=== PATIENT | female | born 1935 | race Caucasian/White ===

== ENCOUNTER 2020-01-16 22:24 | Observation (INO) | payer MEDICARE, BC ==
--- NOTE | 2020-01-16 23:15 | ED ---
Chest Pain HPI - General Chief Complaint: Chest Pain Stated Complaint: Chest Pain Time Seen by Provider: 01/16/20 23:00 Source: RN/MD Mode of arrival: EMS Limitations: altered mental status - History of Present Illness Initial Comments: This patient is an 84-year-old woman transferred here from [facility] where she had gone tonight for possible chest pain. Patient has history of underlying dementia and it is difficult to obtain history of what occurred being to her going to [facility]. It sounds like at the living facility she had clutched her chest as if she may be having pain and therefore the transfer to the other facility was initiated. The patient is not able to give any history related to this event. The accompanying workup from the other facility reveals chemistries that are largely normal other than the glucose being 209 the BUN 34 with a creatinine of 1.2. The patient's CBC is unremarkable. The troponin is negative. MD Complaint: chest pain -: hour(s) Onset: during rest Pain Location: left chest Quality: other (Unable to characterize) Improves With: other (Unable to characterize) Worsens With: other (Unable to characterize) Treatments Prior to Arrival: aspirin, nitroglycerin, other (Rocephin) - Related Data Allergies Allergy/AdvReac Type Severity Reaction Status Date / Time No Known Allergies Allergy Verified 01/16/20 22:40 Review of Systems ROS Statement: Those systems with pertinent positive or pertinent negative responses have been documented in the HPI. ROS Other: All systems not noted in ROS Statement are negative. Limitations: ROS unobtainable due to patients medical condition (Underlying dementia) EKG Findings - EKG Results: EKG: interpreted by ERMD, sinus rhythm (With PVC), normal axis EKG shows: bradycardia (Rate 57 bpm) - Blocks, [place], Hypertrophy, ST Abn: AV and intraventricular conduction: right bundle branch block (fixed/intermittent, complete/incomplete) Past Medical History Past Medical History: Atrial Fibrillation, Diabetes Mellitus, Hypertension History of Any Multi-Drug Resistant Organisms: Unobtainable Past Psychological History: Unable to Obtain Smoking Status: Unknown if ever smoked Past Alcohol Use History: Unable to Obtain Past Drug Use History: Unable to Obtain General Exam General appearance: alert, in no apparent distress Head exam: Present: atraumatic, normocephalic Eye exam: Present: normal appearance Neck exam: Present: normal inspection Respiratory exam: Present: normal lung sounds bilaterally. Absent: respiratory distress, wheezes, rales, rhonchi, stridor Cardiovascular Exam: Present: regular rate, normal rhythm, normal heart sounds. Absent: systolic murmur, diastolic murmur, rubs, gallop GI/Abdominal exam: Present: soft. Absent: distended, tenderness, guarding Extremities exam: Present: normal inspection, normal capillary refill. Absent: pedal edema, calf tenderness Neurological exam: Present: alert Skin exam: Present: warm, dry, intact, normal color. Absent: rash Course Vital Signs 01/16/20 01/16/20 01/16/20 22:27 22:35 23:39 Temperature 98.1 F 97.9 F Pulse Rate 52 L 60 Pulse Rate [ 52 L Pulse Oximetery ] Respiratory 18 16 Rate Blood Pressure 128/109 114/83 O2 Sat by Pulse 97 97 Oximetry Disposition Clinical Impression: Chest pain Disposition: ADMITTED IP TO THIS HOSP Condition: Fair Is patient prescribed a controlled substance at d/c from ED?: No
[2020-01-17] MEDS ORDERED: NITROGLYCERIN SL TABS 0.4 MG TAB SUBLINGUAL PRN (00:27)
[2020-01-17] MEDS ORDERED: LORazepam 2 MG/ML INJ IV STA (00:36)
[2020-01-17 05:03] VITALS: RESP 16
[2020-01-17 08:17] LABS: Glucose,Whole Blood 49 mg/dL (75-99)
[2020-01-17 08:38] LABS: Glucose,Whole Blood 97 mg/dL (75-99)
[2020-01-17] MEDS ORDERED: QUEtiapine 25 MG TAB PO PRN (10:59)
[2020-01-17 11:49] LABS: Glucose,Whole Blood 122 mg/dL (75-99)
[2020-01-17] MEDS: SODIUM CHLORIDE 0.9% 1,000 ML IV SCH (12:00)
[2020-01-17] MEDS: carvediloL 3.125 MG TAB PO SCH (13:23)
[2020-01-17] MEDS: DONEPEZIL 5 MG TAB PO SCH (13:24)
[2020-01-17] MEDS: ATORVASTATIN 40 MG TAB PO SCH (13:24)
[2020-01-17 14:02] VITALS: BMI 18.3
--- NOTE | 2020-01-17 15:12 | P.HPIM ---
History of Present Illness 84-year-old female with history of dementia appears to have vascular dementia appears to be pretty advanced lives with her has been takes care of everything for her at home was brought in because it appear like patient was having chest pain is as patient was holding her chest. Patient had a troponin that was negative EKG showed incomplete right bundle branch block with mild bradycardia without any acute ST-T wave changes and PVCs. As of her advanced dementia, unable to obtain any history from the patient although patient is pleasant. Patient is mostly nonverbal. Patient is bit dehydrated on clinical exam as well as mildly elevated serum creatinine of 1.2 with her body mass her normal creatinine should be around 0.2. Patient doesn't appear to have any fever chills no other significant abnormality was appreciated. Review of Systems Unable to obtain due to her clinical condition Past Medical History Past Medical History: Atrial Fibrillation, Diabetes Mellitus, Hypertension History of Any Multi-Drug Resistant Organisms: Unobtainable Past Psychological History: Unable to Obtain Smoking Status: Unknown if ever smoked Past Alcohol Use History: Unable to Obtain Past Drug Use History: Unable to Obtain Medications and Allergies Home Medications Medication Instructions Recorded Confirmed Type Atorvastatin [Lipitor] 40 mg PO DAILY 01/17/20 01/17/20 History Carvedilol [Coreg] 3.125 mg PO DAILY 01/17/20 01/17/20 History Donepezil HCl [Aricept] 5 mg PO DAILY 01/17/20 01/17/20 History INSULIN ASPART (NovoLOG) [NovoLOG See Protocol SQ HS PRN 01/17/20 01/17/20 History (formulary)] Insulin Glargine,Hum.rec.anlog 35 units SQ DAILY 01/17/20 01/17/20 History [Toujeo Solostar] Levothyroxine Sodium [Synthroid] 75 mcg PO DAILY 01/17/20 01/17/20 History Lisinopril [Zestril] 5 mg PO DAILY 01/17/20 01/17/20 History Allergies Allergy/AdvReac Type Severity Reaction Status Date / Time No Known Allergies Allergy Verified 01/17/20 10:05 Physical Exam Vitals: Vital Signs Temp Pulse Pulse Resp BP BP Pulse Ox 01/17/20 11:58 58 L 16 144/70 98 01/17/20 11:55 58 L 16 01/17/20 08:30 97.4 F L 68 16 182/85 98 01/17/20 04:00 97.6 F 70 16 152/76 97 01/17/20 01:45 97.6 F 66 18 154/65 96 01/16/20 23:39 97.9 F 60 16 114/83 97 01/16/20 22:35 52 L 01/16/20 22:27 98.1 F 52 L 18 128/109 97 Intake and Output 01/17/20 01/17/20 01/17/20 06:59 14:59 22:59 Intake Total 600 Balance 600 Intake: Oral 600 Other: Voiding Method Diaper Diaper Incontinent # Voids 1 Weight 49.895 kg 49.895 kg PHYSICAL EXAMINATION: GENERAL: The patient is alert and oriented x0, not in any acute distress. Thin built HEENT: Pupils are round and equally reacting to light. EOMI. No scleral icterus. No conjunctival pallor. Normocephalic, atraumatic. No pharyngeal erythema. No thyromegaly. Dry mucous membranes CARDIOVASCULAR: S1 and S2 present. No murmurs, rubs, or gallops. PULMONARY: No wheezing was appreciated. ABDOMEN: Soft, nontender, nondistended, normoactive bowel sounds. No palpable organomegaly. MUSCULOSKELETAL: No joint swelling or deformity. EXTREMITIES: No cyanosis, clubbing, or pedal edema. NEUROLOGICAL: Limited unable to assess but does not appear to any focal deficits.. Patient does follow commands SKIN: No rashes. Results Labs: Abnormal Lab Results - Last 24 Hours (Table) 01/17/20 01/17/20 Range/Units 08:16 11:48 POC Glucose (mg/dL) 49 L 122 H (75-99) mg/dL Assessment and Plan Plan: -Possible chest pain: Rule out a concurrent syndromes, cardiology was consulted. -Mild acute renal failure prerenal azotemia from dehydration patient was started on IV fluids and recheck the basic volley profile tomorrow -Type 2 diabetes mellitus patient has low blood sugars will cut down a long- acting insulin from 33 units to 20 units in the and use sliding scale insulin -Hyperlipidemia -Hypertension hold off lisinopril because of acute renal failure. -Hypothyroidism -DVT prophylaxis with subcutaneous heparin
--- NOTE | 2020-01-17 15:37 | ECHOF ---
Referral Reason:chest pain MEASUREMENTS -------- HEIGHT: 165.1 cm WEIGHT: 49.9 kg BP: RVIDd: 1.8 cm (< 3.3) IVSd: 1.6 cm (0.6 - 1.1) LVIDd: 3.2 cm (3.9 - 5.3) LVPWd: 1.6 cm (0.6 - 1.1) IVSs: 1.9 cm LVIDs: 2.3 cm LVPWs: 2.2 cm LAESV Index (A-L): 42.26 ml/m Ao Diam: 3.0 cm (2.0 - 3.7) AV Cusp: 1.6 cm (1.5 - 2.6) LA Diam: 3.0 cm (2.7 - 3.8) MV EXCURSION: 6.594 mm (> 18.000) MV EF SLOPE: 29 mm/s (70 - 150) EPSS: 0.8 cm MV E Mitchell: 0.57 m/s MV DecT: 348 ms MV A Mitchell: 1.13 m/s MV E/A Ratio: 0.50 RAP: 5.00 mmHg RVSP: 18.87 mmHg FINDINGS -------- Sinus rhythm with extra systolic beats. This was a technically adequate study. There is moderate concentric left ventricular hypertrophy. Overall left ventricular systolic functi on is low-normal with, an EF between 50 - 55 %. Increased LAP Grade 2 Diastolic Dysfunction. The right ventricle is normal in size. LA is moderately dilated 34-39 ml/m2 The right atrial size is normal. Interatrial and interventricular septum intact. The aortic valve is trileaflet and appears structurally normal. The mitral valve leaflets are mildly thickened. There is trace mitral regurgitation. The tricuspid valve appears structurally normal. Trace tricuspid regurgitation present. Right otoniel tricular systolic pressure is normal at < 35 mmHg. There is no pulmonic regurgitation present. The aortic root size is normal. Normal inferior vena cava with normal inspiratory collapse consistent with estimated right atrial pre ssure of 5 mmHg. There is no pericardial effusion. CONCLUSIONS -------- 1. There is moderate concentric left ventricular hypertrophy. 2. Overall left ventricular systolic function is low-normal with, an EF between 50 - 55 %. 3. Increased LAP Grade 2 Diastolic Dysfunction. 4. LA is moderately dilated 34-39 ml/m2 5. The mitral valve leaflets are mildly thickened. 6. There is trace mitral regurgitation. 7. Trace tricuspid regurgitation present. JET HANDLER: Kiana Evans RDCS
[2020-01-17 16:55] LABS: Glucose,Whole Blood 68 mg/dL (75-99)
[2020-01-17 17:16] LABS: Glucose,Whole Blood 79 mg/dL (75-99)
[2020-01-17 20:46] LABS: Glucose,Whole Blood 272 mg/dL (75-99)
[2020-01-17] MEDS: FAMOTIDINE 20 MG TAB PO SCH (22:44)
[2020-01-17] MEDS: HEPARIN SODIUM,PORCINE 5,000 UNIT/ML 1 ML VIAL SQ SCH (22:44)
[2020-01-18 00:42] LABS: Glucose,Whole Blood 237 mg/dL (75-99)
[2020-01-18] MEDS: SODIUM CHLORIDE 0.9% 1,000 ML IV SCH (01:28)
[2020-01-18 05:49] LABS: Glucose,Whole Blood 111 mg/dL (75-99)
[2020-01-18 08:37] LABS: Glucose,Whole Blood 121 mg/dL (75-99)
[2020-01-18 08:47] LABS: HCT 43.8 % (34.0-46.0); HGB 13.7 gm/dL (11.4-16.0); MCH 29.7 pg (25.0-35.0); MCHC 31.2 g/dL (31.0-37.0); MCV 95.2 fL (80.0-100.0); Mean Platelet Volume 7.4; Platelet Count 245 k/uL (150-450); RDW 13.2 % (11.5-15.5); WBC 7.3 k/uL (3.8-10.6)
[2020-01-18 08:57] LABS: Calcium 8.7 mg/dL (8.4-10.2); Potassium 4.3 mmol/L (3.5-5.1)
[2020-01-18] MEDS ORDERED: ATORVASTATIN 40 MG TAB PO SCH (09:00)
[2020-01-18] MEDS ORDERED: LEVOTHYROXINE 75 MCG TAB PO SCH (09:00)
[2020-01-18] MEDS ORDERED: ASPIRIN 325 MG TAB PO SCH (09:00)
[2020-01-18] MEDS ORDERED: DONEPEZIL 5 MG TAB PO SCH (09:00)
[2020-01-18] MEDS ORDERED: lisinopriL 5 MG TAB PO SCH (09:00)
[2020-01-18] MEDS ORDERED: INSULIN DETEMIR (LEVEMIR) 100 UNIT/ML SYR SQ SCH (09:00)
[2020-01-18] MEDS ORDERED: carvediloL 3.125 MG TAB PO SCH (09:00)
[2020-01-18] MEDS: HEPARIN SODIUM,PORCINE 5,000 UNIT/ML 1 ML VIAL SQ SCH (09:19)
[2020-01-18] MEDS: ATORVASTATIN 40 MG TAB PO SCH (09:19)
[2020-01-18] MEDS: FAMOTIDINE 20 MG TAB PO SCH (09:19)
[2020-01-18] MEDS: carvediloL 3.125 MG TAB PO SCH (09:19)
[2020-01-18] MEDS: DONEPEZIL 5 MG TAB PO SCH (09:20)
[2020-01-18] MEDS ORDERED: lisinopriL 5 MG TAB PO STA (10:47)
[2020-01-18 11:25] LABS: Glucose,Whole Blood 238 mg/dL (75-99)
--- NOTE | 2020-01-18 11:59 | P.DS ---
Providers Date of admission: 01/17/20 00:27 Attending physician: Reyna Vega Consults: 01/17/20 11:14 Consult Physician Routine Consulting Provider: Arsh Choi Consult Reason/Comments: chest pain Do you want consulting provider notified?: Yes Primary care physician: Eliel Mar MD Hospital Course: 84-year-old female with history of dementia appears to have vascular dementia appears to be pretty advanced lives with her has been takes care of everything for her at home was brought in because it appear like patient was having chest pain is as patient was holding her chest. Patient had a troponin that was negative EKG showed incomplete right bundle branch block with mild bradycardia without any acute ST-T wave changes and PVCs. As of her advanced dementia, unable to obtain any history from the patient although patient is pleasant. Patient is mostly nonverbal. Patient is bit dehydrated on clinical exam as well as mildly elevated serum creatinine of 1.2 with her body mass her normal creatinine should be around 0.2. Patient doesn't appear to have any fever chills no other significant abnormality was appreciated. 01/18/2020 Patient had an episode of agitation but did not require any antipsychotic medications at the time. Patient is clinically doing well but the when asked the patient may have chest pain which is not clear because of which will obtain a d-dimer and also obtain a chest x-ray. Chest x-ray from the other facility read as right lower lobe infiltrate which appears to be atelectasis patient doesn't have any fever or leukocytosis. Patient had an echo cardiac exam showed normal ejection fraction but had some grade 2 diastolic dysfunction noted wall motion abnormalities. I cannot really say patient doesn't have any gases with reflux disease because of which I'll give her Pepcid empirically for 14 days. Although clinical suspicion for pneumonia is extremely low will repeat a chest x-ray here and also repeat a d-dimer if they're negative patient will be discharged patient blood pressure is elevated patient the is on lisinopril dose of which will be increased upon discharge patient is receiving IV fluids for acute renal failure from dehydration that may be contributing to her elevated blood pressures PHYSICAL EXAMINATION: GENERAL: The patient is alert and oriented x0, not in any acute distress. Thin built HEENT: Pupils are round and equally reacting to light. EOMI. No scleral icterus. No conjunctival pallor. Normocephalic, atraumatic. No pharyngeal erythema. No thyromegaly. Dry mucous membranes CARDIOVASCULAR: S1 and S2 present. No murmurs, rubs, or gallops. PULMONARY: No wheezing was appreciated. ABDOMEN: Soft, nontender, nondistended, normoactive bowel sounds. No palpable organomegaly. MUSCULOSKELETAL: No joint swelling or deformity. EXTREMITIES: No cyanosis, clubbing, or pedal edema. NEUROLOGICAL: Limited unable to assess but does not appear to any focal deficits.. Patient does follow commands SKIN: No rashes. -Chest pain ruled out acute coronary syndromes we will rule out PE suspicion for pneumonia is low probably either musculoskeletal or gases with reflux disease further management as described in the history above -Acute renal failure improved with IV fluids -type 2 diabetes mellitus and patient is becoming hypoglycemic at home will cut down the insulin from 35 units to 28 units since blood sugars went up with a 20 units -Hyperlipidemia -Hypertension -Hypothyroidism -Possible vascular dementia Patient Condition at Discharge: Fair Plan - Discharge Summary Discharge Rx Participant: No New Discharge Prescriptions: New Famotidine [Pepcid] 20 mg PO BID #30 tablet No Action Insulin Glargine,Hum.rec.anlog [Toujeo Solostar] 35 units SQ DAILY Donepezil HCl [Aricept] 5 mg PO DAILY Carvedilol [Coreg] 3.125 mg PO DAILY Atorvastatin [Lipitor] 40 mg PO DAILY Lisinopril [Zestril] 5 mg PO DAILY Levothyroxine Sodium [Synthroid] 75 mcg PO DAILY INSULIN ASPART (NovoLOG) [NovoLOG (formulary)] See Protocol SQ HS PRN PRN Reason: high blood sugar Discharge Medication List Atorvastatin [Lipitor] 40 mg PO DAILY 01/17/20 [History] Carvedilol [Coreg] 3.125 mg PO DAILY 01/17/20 [History] Donepezil HCl [Aricept] 5 mg PO DAILY 01/17/20 [History] INSULIN ASPART (NovoLOG) [NovoLOG (formulary)] See Protocol SQ HS PRN 01/17/20 [History] Insulin Glargine,Hum.rec.anlog [Toujeo Solostar] 35 units SQ DAILY 01/17/20 [History] Levothyroxine Sodium [Synthroid] 75 mcg PO DAILY 01/17/20 [History] Lisinopril [Zestril] 5 mg PO DAILY 01/17/20 [History] Famotidine [Pepcid] 20 mg PO BID #30 tablet 01/18/20 [Rx] Follow up Appointment(s)/Referral(s): Eliel Mar MD [Primary Care Provider] - [facility] [NON-STAFF] - Discharge Disposition: HOME SELF-CARE
--- NOTE | 2020-01-18 12:08 | P.CRDCN ---
History of Present Illness Consult date: 01/18/20 Reason for Consult (text): Chest pain Chief complaint: Chest pain History of present illness: HISTORY OF PRESENT ILLNESS AND PLAN: This is a 84-year-old female with history of advanced dementia, chronic atrial fibrillation, diabetes mellitus, hypertension and recent complaints of chest pain. Patient transferred from [facility] with complaints of chest pain. Patient has advanced dementia and is unable to answer any historical questions. No family currently at bedside. Pt has no current complaints of chest pain, chest pressure, shortness of breath or palpitations. Telemetry shows sinus bradycardia with PAC's. Heart rate 50s to 60. Troponin's negative 2. Blood pressure is elevated this a.m. and 169/85. D-Dimer elevated at 0.97. Pt is not anticoagulated for known AF. Takes Coreg 3.125 daily. Patient currently in no acute distress. Unknown smoking history. SIGNIFICANT PAST MEDICAL HISTORY: Advanced dementia, chronic atrial fibrillation, diabetes mellitus, hypertension and recent complaints of chest pain. PAST SURGICAL HISTORY: See list. EKG = SB with PAC's. HR 57 Troponins negative x 2 SIGNIFICANT LABORATORY VALUES: WNL. No magnesium level, will obtain. Most recent echo = EF 50-55%, grade 2 diastolic dysfunction. LA moderately dilated. Trace MR and trace TR. REVIEW OF SYSTEMS: CONSTITUTIONAL: Denies fever. Denies chills. EYES: Denies blurred vision. Denies blurred vision or vision changes. Denies eye pain. EARS, NOSE, MOUTH & THROAT: Denies headache. Denies sore throat. Denies ear pain Denies hemoptysis. CARDIOVASCULAR: Denies chest pain. Denies shortness of breath. Denies orthopnea. Denies PND. Denies palpitations. RESPIRATORY: Denies cough. Denies shortness of breath. GASTROINTESTINAL: Denies abdominal pain or distention. Denies diarrhea. Denies constipation. Denies nausea. Denies vomiting. MUSCULOSKELETAL: Denies myalgias. INTEGUMENTARY: Denies pruitis. Denies rash. ENDOCRINE: Denies fatigue. Denies weight change. Denies polydipsia. Denies polyurina Denies heat/cold intolerance. GENITOURINARY: Denies burning, hematuria or urgency with micturation. HEMATOLOGIC: Denies history of anemia. Denies bleeding. NEUROLOGIC: Denies numbness. Denies tingling. Denies weakness. PSYCHIATRIC: Denies anxiety. Denies depression. PHYSICAL EXAM: GENERAL: Well developed, in no acute distress. HEENT: Head is atraumatic, normocephalic. Pupils are equal, round. Extra ocular movements intact. Mucous membranes moist. Neck supple. No JVD. No carotid bruit. No thyromegaly. LUNGS: Clear to auscultation. No wheezes, rales or rhonchi. No chest wall tenderness on palpation or with deep breathing. HEART: Regular rate and rhythm, no rubs or gallops. S1 and S2 heard. No murmur. ABDOMEN: Abdominal exam, WNL. Bowel sounds x4 quads. Soft, non-tender, without masses, organomegaly, or abdominal aorta enlargement. EXTREMITIES/VASCULAR: Extremities have easily palpable radial, femoral, dorsalis pedis and posterior tibial pulses. No cyanosis, calf tenderness. No BLE edema. NEUROLOGIC: Patient is awake, alert and oriented x0. No focal neurologic abnormalities. FINAL IMPRESSION: 1. Atypical chest pain 2. Hypertension 3. PVC's/PAC's 4. Hyperlipidemia 5. Elevated D-Dimer, will obtain CT angiography to R/O PE PLAN: Will order CT angiography for elevated D-Dimer to rule out PE prior to DC. OK for D/C from a cardiology standpoint with negative CT scan for PE and blood pressure control. Continue same all other medication/medical regime. Nurse Practitioner note has been reviewed by the Physician. Signing provider agrees with the documented findings, assessment and plan of care. Past Medical History Past Medical History: Atrial Fibrillation, Diabetes Mellitus, Hypertension History of Any Multi-Drug Resistant Organisms: Unobtainable Past Psychological History: Unable to Obtain Smoking Status: Unknown if ever smoked Past Alcohol Use History: Unable to Obtain Past Drug Use History: Unable to Obtain Medications and Allergies Home Medications Medication Instructions Recorded Confirmed Type Atorvastatin [Lipitor] 40 mg PO DAILY 01/17/20 01/17/20 History Carvedilol [Coreg] 3.125 mg PO DAILY 01/17/20 01/17/20 History Donepezil HCl [Aricept] 5 mg PO DAILY 01/17/20 01/17/20 History INSULIN ASPART (NovoLOG) [NovoLOG See Protocol SQ HS PRN 01/17/20 01/17/20 History (formulary)] Levothyroxine Sodium [Synthroid] 75 mcg PO DAILY 01/17/20 01/17/20 History Lisinopril [Zestril] 5 mg PO DAILY 01/17/20 01/17/20 History Famotidine [Pepcid] 20 mg PO BID #30 tablet 01/18/20 Rx Insulin Glargine,Hum.rec.anlog 28 units SQ DAILY #0 01/18/20 01/17/20 Rx [Toyamile Da Silva] Allergies Allergy/AdvReac Type Severity Reaction Status Date / Time No Known Allergies Allergy Verified 01/17/20 10:05 Physical Exam Vitals: Vital Signs Temp Pulse Resp BP Pulse Ox 01/18/20 11:10 77 16 96 01/18/20 08:35 98.4 F 70 16 198/90 99 01/18/20 04:00 98.2 F 62 16 162/80 96 01/18/20 00:00 55 L 16 169/85 96 01/17/20 20:00 16 01/17/20 15:30 97.6 F 57 L 16 135/87 99 01/17/20 11:58 58 L 16 144/70 98 01/17/20 11:55 58 L 16 Intake and Output 01/17/20 01/18/20 01/18/20 22:59 06:59 14:59 Intake Total 720 600 740 Balance 720 600 740 Intake: Intake, IV Titration 600 Amount Sodium Chloride 0.9% 1, 600 000 ml @ 75 mls/hr IV . [id number] PENDING SALE TO [facility] Rx#:[id number] Oral 720 740 Other: Voiding Method Diaper Diaper Diaper Incontinent Incontinent Incontinent # Voids 1 1 1 Weight 48 kg Results 01/18/20 08:19 01/18/20 08:19 Lipids 01/18/20 Range/Units 08:19 Triglycerides 99 (<150) mg/dL Cholesterol 192 (<200) mg/dL HDL Cholesterol 67 H (40-60) mg/dL CBC 01/18/20 Range/Units 08:19 WBC 7.3 (3.8-10.6) k/uL RBC 4.60 (3.80-5.40) m/uL Hgb 13.7 (11.4-16.0) gm/dL Hct 43.8 (34.0-46.0) % Plt Count 245 (150-450) k/uL Comprehensive Metabolic Panel 01/18/20 Range/Units 08:19 Sodium 141 (137-145) mmol/L Potassium 4.3 (3.5-5.1) mmol/L Chloride 110 H (98-107) mmol/L Carbon Dioxide 27 (22-30) mmol/L BUN 21 H (7-17) mg/dL Creatinine 0.81 (0.52-1.04) mg/dL Glucose 97 (74-99) mg/dL Calcium 8.7 (8.4-10.2) mg/dL Current Medications Generic Name Dose Route Start Last Admin Trade Name Freq PRN Reason Stop Dose Admin Aspirin 325 mg 01/18/20 09:00 01/18/20 09:19 Aspirin PO 325 mg DAILY OSCAR Administration Atorvastatin Calcium 40 mg 01/17/20 12:15 01/18/20 09:19 Lipitor PO 40 mg DAILY OSCAR Administration Carvedilol 3.125 mg 01/17/20 12:01 01/18/20 09:19 Coreg PO 3.125 mg DAILY OSCAR Administration Donepezil HCl 5 mg 01/17/20 12:15 01/18/20 09:20 Aricept PO 5 mg DAILY OSCAR Administration Famotidine 20 mg 01/17/20 21:00 01/18/20 09:19 Pepcid PO 20 mg BID OSCAR Administration Heparin Sodium (Porcine) 5,000 unit 01/17/20 21:00 01/18/20 09:19 Heparin SQ 5,000 unit Q12HR OSCAR Administration Sodium Chloride 1,000 mls @ 75 mls/hr 01/17/20 11:00 01/18/20 01:28 Saline 0.9% IV 75 mls/hr .[id number] OSCAR Administration Insulin Detemir 20 unit 01/18/20 09:00 01/18/20 09:19 Levemir SQ 20 unit DAILY OSCAR Administration Levothyroxine Sodium 75 mcg 01/18/20 09:00 01/18/20 09:19 Synthroid PO 75 mcg DAILY OSCAR Administration Lisinopril 10 mg 01/19/20 09:00 Zestril PO DAILY OSCAR Nitroglycerin 0.4 mg 01/17/20 00:27 Nitrostat SUBLINGUAL Q5M PRN Chest Pain Quetiapine Fumarate 25 mg 01/17/20 10:59 Seroquel PO HS PRN Agitation Sodium Chloride 10 ml 01/17/20 09:00 01/18/20 10:03 Saline Flush IV Not Given BID OSCAR Intake and Output 01/17/20 01/18/20 01/18/20 22:59 06:59 14:59 Intake Total 720 600 740 Balance 720 600 740 Intake: Intake, IV Titration 600 Amount Sodium Chloride 0.9% 1, 600 000 ml @ 75 mls/hr IV . [id number] OSCAR Rx#:[id number] Oral 720 740 Other: Voiding Method Diaper Diaper Diaper Incontinent Incontinent Incontinent # Voids 1 1 1 Weight 48 kg 01/18/20 08:19 01/18/20 08:19 - EKG Interpretation EKG: sinus rhythm
--- NOTE | 2020-01-18 13:00 | XR ---
EXAMINATION TYPE: XR chest 1V portable DATE OF EXAM: 01/18/2020 HISTORY: chest pain. REFERENCE: NONE. FINDINGS: There are senescent changes within the lungs. Heart size upper limits of normal. There is s ome unfolding of the thoracic aorta. No pleural fluid is seen. There is severe rotator cuff disease i n both shoulders. IMPRESSION: NO ACUTE PNEUMONIA OR EDEMA.
--- NOTE | 2020-01-18 13:07 | CT ---
EXAMINATION TYPE: CT angio chest DATE OF EXAM: 01/18/2020 12:56 PM COMPARISON: None. HISTORY: elevated d dimer, rule out PE CT DLP: 212.6 mGycm Automated exposure control for dose reduction was used. CONTRAST: CTA scan of the thorax is performed with IV Contrast, patient injected with 100 mL of Isovue 370, pul monary embolism protocol. . FINDINGS: There is atelectatic changes in the dependent portions of the lungs. There is mild intersti tial lung disease. No definite parenchymal nodules are seen. There are tiny bilateral pleural effusions. There is no significant axillary, internal mammary, mediastinal or hilar adenopathy. There is no evidence of pulmonary embolus. The heart is mildly enlarged. There is no pericardial fluid. Visualized portions of the upper abdomen are unremarkable. There is hypertrophic spondylosis within the spine. IMPRESSION: 1. THIS EXAMINATION IS NEGATIVE FOR PULMONARY EMBOLUS. 2. TINY BILATERAL PLEURAL EFFUSIONS. 3. CARDIOMEGALY. 4. MILD INTERSTITIAL LUNG DISEASE.
[2020-01-18 15:08] VITALS: BP 168/69; PULSE 62; TEMP 98.4
[2020-01-19] MEDS ORDERED: FAMOTIDINE 20 MG TAB PO SCH (09:00)
[2020-01-19] MEDS ORDERED: lisinopriL 10 MG TAB PO SCH (09:00)
[2020-01-19 09:39] LABS: Hemoglobin A1C 8.4 % (4.0-6.0)
== END 2020-01-18 16:32 | disposition home or self-care (01) ==
LOC: EC 22:24 → 3SCARD 01-17 00:27
PROVIDERS: ADMIT Hospitalist; ATTEND Hospitalist
DX: R07.89 Other chest pain (principal); E03.9 Hypothyroidism, unspecified; E11.9 Type 2 diabetes mellitus without complications; E78.5 Hyperlipidemia, unspecified; E86.0 Dehydration; I10 Essential (primary) hypertension; I45.10 Unspecified right bundle-branch block; I48.20 Chronic atrial fibrillation, unspecified; N17.9 Acute kidney failure, unspecified; Z79.890 Hormone replacement therapy; Z79.899 Other long term (current) drug therapy; F03.90 Unspecified dementia, unspecified severity, without behavioral disturbance, psychotic disturbance, mood disturbance, and anxiety; R79.89 Other specified abnormal findings of blood chemistry; Z03.818 Encounter for observation for suspected exposure to other biological agents ruled out; R00.1 Bradycardia, unspecified
CPT/HCPCS: 96372; 96374; 99285; 36415; 93005; 93306; 85379; 80061; 80048; 83735; 84484 ×2; 85027; 83036; 71045; 71275; G0378 ×2; U0003; J2060; J1644; Q9967

== ENCOUNTER 2020-04-02 22:55 | Inpatient (IN) | payer MEDICARE, BC ==
--- NOTE | 2020-04-02 23:30 | XR ---
EXAMINATION TYPE: XR chest 1V portable DATE OF EXAM: 04/02/2020 COMPARISON: 01/18/2020 HISTORY: Chest pain TECHNIQUE: FINDINGS: There is no heart failure nor confluent pneumonic infiltrate. There is slight coarsening of interstitial markings. There are chest leads. Thoracic aorta is atheromatous. There is moderate arth ritic change in the shoulder joints. There is superior subluxation and partial dislocations of both s houlder joints. IMPRESSION: Pulmonary fibrotic changes. No heart failure. 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
--- NOTE | 2020-04-02 23:35 | ED ---
Chest Pain HPI - General Chief Complaint: Chest Pain Stated Complaint: cardiac transfer Time Seen by Provider: 04/02/20 22:58 Source: RN/MD, EMS Mode of arrival: EMS Limitations: altered mental status (Dementia), physical limitation - History of Present Illness Initial Comments: This patient is an 84 year old woman who had been transferred here from [facility] to have cardiology consultation. The patient's had phoned EMS earlier in the evening as the patient was less responsive than usual. She did not want to get off the couch. She did not want to have her dinner. While the patient was having an evaluation at the other hospital, she reportedly developed a run of ventricular tachycardia. The patient does appear to have moderately severe underlying dementia and is not able to recall the episode nor earlier in the night what led to the ambulance being called. The patient is able to answer some simple yes or no questions. She is denying chest pain. She denies pain anywhere else. She denies dyspnea. MD Complaint: other Treatments Prior to Arrival: other (Lidocaine) - Related Data Previous Rx's Medication Instructions Recorded Insulin Glargine,Hum.rec.anlog 28 units SQ DAILY #0 01/18/20 [Toujeo Solostar] Allergies Allergy/AdvReac Type Severity Reaction Status Date / Time No Known Allergies Allergy Verified 04/03/20 08:54 Review of Systems ROS Statement: Those systems with pertinent positive or pertinent negative responses have been documented in the HPI. ROS Other: All systems not noted in ROS Statement are negative. Limitations: ROS unobtainable due to patients medical condition (Dementia) Respiratory: Denies: cough, dyspnea Cardiovascular: Denies: chest pain Gastrointestinal: Denies: abdominal pain Musculoskeletal: Denies: back pain Neurological: Denies: headache EKG Findings - EKG Results: EKG: interpreted by ERMD, sinus rhythm (Rate 65 bpm), normal axis, normal ST/T - Blocks, Edelstein, Hypertrophy, ST Abn: AV and intraventricular conduction: right bundle branch block (fixed/intermittent, complete/incomplete) Past Medical History Past Medical History: Atrial Fibrillation, Dementia, Diabetes Mellitus, Hypertension History of Any Multi-Drug Resistant Organisms: Unobtainable Past Psychological History: Unable to Obtain Smoking Status: Unknown if ever smoked Past Alcohol Use History: Unable to Obtain Past Drug Use History: Unable to Obtain - Past Family History Mother Family Medical History: Unable to Obtain General Exam Limitations: altered mental status, physical limitation General appearance: alert, in no apparent distress, cachectic Head exam: Present: atraumatic, normocephalic Eye exam: Present: normal appearance. Absent: scleral icterus, conjunctival injection Neck exam: Present: normal inspection, full ROM Respiratory exam: Present: normal lung sounds bilaterally. Absent: respiratory distress, wheezes, rales, rhonchi, stridor Cardiovascular Exam: Present: regular rate, normal rhythm, normal heart sounds. Absent: systolic murmur, diastolic murmur, rubs, gallop GI/Abdominal exam: Present: soft. Absent: distended, tenderness, guarding, rebound Extremities exam: Present: normal inspection, normal capillary refill. Absent: pedal edema, calf tenderness Back exam: Present: normal inspection Neurological exam: Present: alert. Absent: oriented X3 (Patient is oriented to person only), motor sensory deficit Skin exam: Present: warm, dry, intact, normal color. Absent: rash Course Vital Signs 04/02/20 04/03/20 04/03/20 23:03 00:43 01:18 Temperature 98.0 F Pulse Rate 59 L 64 Respiratory 16 18 Rate Blood Pressure 175/99 131/71 O2 Sat by Pulse 98 96 95 Oximetry 04/03/20 01:47 Temperature 98.1 F Pulse Rate 68 Respiratory 18 Rate Blood Pressure 141/99 O2 Sat by Pulse 97 Oximetry Disposition Clinical Impression: Urinary tract infection, Ventricular tachycardia (paroxysmal) Disposition: ADMITTED IP TO THIS HOSP Condition: Poor
[2020-04-02 23:54] LABS: Basophils % (A) 0 %; Eosinophils # (A) 0.1 k/uL (0-0.7); Eosinophils % (A) 2 %; HCT 37.6 % (34.0-46.0); HGB 12.1 gm/dL (11.4-16.0); Lymphocytes % (A) 18 %; MCH 29.9 pg (25.0-35.0); MCHC 32.2 g/dL (31.0-37.0); Mean Platelet Volume 7.1; Monocytes # (A) 0.5 k/uL (0-1.0); Monocytes % (A) 8 %; Neutrophils # (A) 4.3 k/uL (1.3-7.7); Neutrophils % (A) 71 %; Platelet Count 226 k/uL (150-450); RBC 4.04 m/uL (3.80-5.40)
[2020-04-03 00:18] LABS: Albumin 3.4 g/dL (3.5-5.0); Calcium 8.5 mg/dL (8.4-10.2); Magnesium 1.9 mg/dL (1.6-2.3); Total Bilirubin 0.6 mg/dL (0.2-1.3); Total Protein 5.9 g/dL (6.3-8.2)
[2020-04-03 00:30] LABS: Partial Thromboplastin Time 20.2 sec (22.0-30.0)
[2020-04-03 00:56] LABS: Appearance,Urine Cloudy (Clear); Bacteria,Urine Many /hpf; Bilirubin,Urine Negative (Negative); Blood,Urine Moderate (Negative); Color,Urine Yellow; Glucose,Urine (UA) 1+ (Negative); Ketones,Urine Negative (Negative); Leukocyte Esterase,Urine Large (Negative); Mucus,Urine Rare /hpf; Nitrite,Urine Positive (Negative); PH, Urine 5.5 (5.0-8.0); Protein,Urine Trace (Negative); RBC,Urine 98 /hpf (0-5); Specific Gravity,Urine 1.017 (1.001-1.035); Squamous Epithelial Cell,Urine 2 /hpf (0-4); Urobilinogen,Urine <2.0 mg/dL (<2.0); WBC,Urine >182 /hpf (0-5)
[2020-04-03] MEDS ORDERED: LORazepam 2 MG/ML INJ IV STA (00:58)
[2020-04-03] MEDS ORDERED: NITROGLYCERIN SL TABS 0.4 MG TAB SUBLINGUAL PRN (01:18)
[2020-04-03] MEDS: LEVOTHYROXINE 75 MCG TAB PO SCH (06:27)
[2020-04-03] MEDS: INSULIN ASPART (NovoLOG) 100 UNIT/ML VIAL SQ SCH ×4 (06:27→21:13)
[2020-04-03] MEDS: carvediloL 3.125 MG TAB PO SCH (06:27)
[2020-04-03 06:28] LABS: Glucose,Whole Blood 153 mg/dL (75-99)
[2020-04-03] MEDS ORDERED: FAMOTIDINE 20 MG TAB PO SCH (09:00)
[2020-04-03] MEDS: lisinopriL 5 MG TAB PO SCH (10:53)
[2020-04-03] MEDS: INSULIN DETEMIR (LEVEMIR) 100 UNIT/ML SYR SQ SCH (10:53)
[2020-04-03] MEDS: ATORVASTATIN 40 MG TAB PO SCH (10:54)
[2020-04-03] MEDS: DONEPEZIL 5 MG TAB PO SCH (10:54)
[2020-04-03 12:26] LABS: Glucose,Whole Blood 171 mg/dL (75-99)
--- NOTE | 2020-04-03 12:56 | CONS ---
CONSULTATION Mrs. Hatch is an 84-year-old female who was transferred from [facility] for further cardiac evaluation. Patient has history of advanced dementia. Apparently was brought into the emergency room in [place] by her family because of change in mental status. In the emergency room, she had what appears to be an episode of arrhythmia with ventricular tachycardia and that is why she was transferred to [facility]. I am not able to obtain any history from the patient. She has advanced dementia. According to the nursing staff, since her transfer, she has not had any issues at all. On the monitor, she has been in sinus mechanism. She was in the hospital in December for questionable chest discomfort and at that time underwent an echocardiogram that revealed no evidence of segmental wall motion abnormalities. MEDICATION: At home included aspirin, Lipitor 40 mg daily, Coreg 3.125 mg and daily, donepezil, insulin, and lisinopril 5 mg daily. REVIEW OF SYSTEMS: Could not be obtained. PHYSICAL EXAMINATION: She is an 84-year-old female, alert, confused, in no apparent distress. Blood pressure 140/60 with a heart rate in 60s. HEAD: Normocephalic. EYES: Sclerae anicteric. NECK good upstroke. No jugular venous distention. LUNGS: Clear to auscultation. HEART: Regular rate and rhythm S1, S2. No S3. No S4. No murmur or rub with a systolic murmur. ABDOMEN: Soft, nontender. Positive bowel sounds. No organomegaly. EXTREMITIES: No edema noted. Reviewing the rhythm strips that were sent with the patient: What was thought to be ventricular tachycardia was artifact and there was no evidence of ventricular tachycardia. Her EKG showed a sinus mechanism with a right bundle branch block. Reviewing her EKG from her prior admission there were no changes. There was a question of atrial fibrillation, although I do not see any documentation at this time. Her chest x-ray performed yesterday in the emergency room revealed no heart failure. Her BUN and creatinine 32 and 0.78. Troponin less than 0.012. Hemoglobin of 12.1. IMPRESSION: 1. Change in mental status of unclear etiology in a patient with severe dementia. 2. Artifact with no evidence of ventricular tachycardia. 3. History of hypertension. 4. History of hyperlipidemia. 5. Diabetes mellitus. RECOMMENDATIONS: From the cardiac standpoint, I see no evidence of active cardiac issues. I would not recommend any cardiac workup. We will see her on an as-needed basis. Please feel free to call us for any questions. Thank you for this consult. MIKE / SHREYAN: [phone] /
[2020-04-03 16:56] LABS: Glucose,Whole Blood 72 mg/dL (75-99)
[2020-04-03 19:01] LABS: Glucose,Whole Blood 200 mg/dL (75-99)
[2020-04-03 20:52] LABS: Glucose,Whole Blood 230 mg/dL (75-99)
[2020-04-03] MEDS: QUEtiapine 25 MG TAB PO PRN (23:04)
[2020-04-04 02:56] LABS: Cholesterol 182 mg/dL (<200); HDL Cholesterol 55 mg/dL (40-60); LDL Cholesterol,Calculated 111 mg/dL (0-99); Triglycerides 81 mg/dL (<150)
[2020-04-04 06:06] LABS: Glucose,Whole Blood 64 mg/dL (75-99)
[2020-04-04] MEDS ORDERED: DEXTROSE 50% SYRINGE 50 ML IVP STA (06:12)
[2020-04-04] MEDS ORDERED: DEXTROSE 50% SYRINGE 50 ML IVP ONE (06:14)
[2020-04-04] MEDS: INSULIN ASPART (NovoLOG) 100 UNIT/ML VIAL SQ SCH ×2 (06:15→12:50)
[2020-04-04 06:27] LABS: Glucose,Whole Blood 212 mg/dL (75-99)
[2020-04-04] MEDS: LEVOTHYROXINE 75 MCG TAB PO SCH (07:48)
[2020-04-04] MEDS: carvediloL 3.125 MG TAB PO SCH (07:48)
[2020-04-04] MEDS: ASPIRIN 81 MG PO SCH (07:48)
[2020-04-04] MEDS: ATORVASTATIN 40 MG TAB PO SCH (07:48)
[2020-04-04] MEDS: lisinopriL 5 MG TAB PO SCH (07:48)
[2020-04-04] MEDS: FAMOTIDINE 20 MG TAB PO SCH (07:48)
[2020-04-04] MEDS: DONEPEZIL 5 MG TAB PO SCH (07:49)
[2020-04-04] MEDS ORDERED: ASPIRIN 325 MG TAB PO SCH (09:00)
--- NOTE | 2020-04-04 11:15 | P.HPIM ---
History of Present Illness H&P Date: 04/03/20 Chief Complaint: Chest pain 84 year old woman who had been transferred here from [facility] to have cardiology consultation. The patient's had phoned EMS earlier in the evening as the patient was less responsive than usual. She did not want to get off the couch. She did not want to have her dinner. While the patient was having an evaluation at the other hospital, she reportedly developed a run of ventricular tachycardia. The patient does appear to have moderately severe underlying dementia and is not able to recall the episode nor earlier in the night what led to the ambulance being called. The patient is able to answer some simple yes or no questions. She is denying chest pain. She denies pain anywhere else. She denies dyspnea. Review of Systems REVIEW OF SYSTEMS: CONSTITUTIONAL: No fever, no malaise, no fatigue. HEENT: No recent visual problems or hearing problems. Denied any sore throat. CARDIOVASCULAR: No chest pain, orthopnea, PND, no palpitations, no syncope. PULMONARY: No shortness of breath, no cough, no hemoptysis. GASTROINTESTINAL: No diarrhea, no nausea, no vomiting, no abdominal pain. NEUROLOGICAL: No headaches, no weakness, no numbness. HEMATOLOGICAL: Denies any bleeding or petechiae. GENITOURINARY: Denies any burning micturition, frequency, or urgency. MUSCULOSKELETAL/RHEUMATOLOGICAL: Denies any joint pain, swelling, or any muscle pain. ENDOCRINE: Denies any polyuria or polydipsia. The rest of the 14-point review of systems is negative. Past Medical History Past Medical History: Atrial Fibrillation, Dementia, Diabetes Mellitus, Hypertension, Thyroid Disorder History of Any Multi-Drug Resistant Organisms: Unobtainable Past Anesthesia/Blood Transfusion Reactions: Unable to Obtain Past Psychological History: Unable to Obtain Smoking Status: Unknown if ever smoked Past Alcohol Use History: Unable to Obtain Past Drug Use History: Unable to Obtain - Past Family History Mother Family Medical History: Unable to Obtain Medications and Allergies Home Medications Medication Instructions Recorded Confirmed Type Insulin Glargine,Hum.rec.anlog 28 units SQ DAILY #0 01/18/20 04/03/20 Rx [Toukeshia Soltreear] Allergies Allergy/AdvReac Type Severity Reaction Status Date / Time No Known Allergies Allergy Verified 04/03/20 08:54 Physical Exam Vitals: Vital Signs Temp Pulse Pulse Resp BP BP Pulse Ox 04/03/20 12:00 70 18 141/67 98 04/03/20 08:45 97.7 F 64 17 140/65 97 04/03/20 04:00 98.9 F 73 18 139/95 97 04/03/20 01:47 98.1 F 68 18 141/99 97 04/03/20 01:18 95 04/03/20 00:43 64 18 131/71 96 04/02/20 23:03 98.0 F 59 L 16 175/99 98 Intake and Output 04/03/20 04/03/20 04/03/20 06:59 14:59 22:59 Intake Total 50 Output Total 800 Balance -750 Intake: Oral 50 Output: Urine 800 Other: Voiding Method Incontinent # Voids 1 Weight 55.3 kg Limitations: altered mental status, physical limitation General appearance: alert, in no apparent distress, cachectic Head exam: Present: atraumatic, normocephalic Eye exam: Present: normal appearance. Absent: scleral icterus, conjunctival injection Neck exam: Present: normal inspection, full ROM Respiratory exam: Present: normal lung sounds bilaterally. Absent: respiratory distress, wheezes, rales, rhonchi, stridor Cardiovascular Exam: Present: regular rate, normal rhythm, normal heart sounds. Absent: systolic murmur, diastolic murmur, rubs, gallop GI/Abdominal exam: Present: soft. Absent: distended, tenderness, guarding, rebound Extremities exam: Present: normal inspection, normal capillary refill. Absent: pedal edema, calf tenderness Back exam: Present: normal inspection Neurological exam: Present: alert. Absent: oriented X3 (Patient is oriented to person only), motor sensory deficit Skin exam: Present: warm, dry, intact, normal color. Absent: rash Results CBC & Chem 7: 04/02/20 23:37 04/02/20 23:37 Labs: Abnormal Lab Results - Last 24 Hours (Table) 04/02/20 04/02/20 04/03/20 Range/Units 23:37 23:37 00:42 APTT 20.2 L (22.0-30.0) sec Sodium 135 L (137-145) mmol/L Chloride 108 H (98-107) mmol/L BUN 32 H (7-17) mg/dL Glucose 208 H (74-99) mg/dL POC Glucose (mg/dL) (75-99) mg/dL Total Protein 5.9 L (6.3-8.2) g/dL Albumin 3.4 L (3.5-5.0) g/dL Urine Appearance Cloudy H (Clear) Urine Protein Trace H (Negative) Urine Glucose (UA) 1+ H (Negative) Urine Blood Moderate H (Negative) Urine Nitrite Positive H (Negative) Ur Leukocyte Esterase Large H (Negative) Urine RBC 98 H (0-5) /hpf Urine WBC >182 H (0-5) /hpf Urine WBC Clumps Few H (None) /hpf Urine Bacteria Many H (None) /hpf Urine Mucus Rare H (None) /hpf 04/03/20 04/03/20 Range/Units 06:26 12:07 APTT (22.0-30.0) sec Sodium (137-145) mmol/L Chloride (98-107) mmol/L BUN (7-17) mg/dL Glucose (74-99) mg/dL POC Glucose (mg/dL) 153 H 171 H (75-99) mg/dL Total Protein (6.3-8.2) g/dL Albumin (3.5-5.0) g/dL Urine Appearance (Clear) Urine Protein (Negative) Urine Glucose (UA) (Negative) Urine Blood (Negative) Urine Nitrite (Negative) Ur Leukocyte Esterase (Negative) Urine RBC (0-5) /hpf Urine WBC (0-5) /hpf Urine WBC Clumps (None) /hpf Urine Bacteria (None) /hpf Urine Mucus (None) /hpf Thrombosis Risk Factor Assmnt - Choose All That Apply Any of the Below Risk Factors Present?: Yes Each Risk Factor Represents 3 Points: Age 75 years or older Thrombosis Risk Factor Assessment Total Risk Factor Score: 3 Thrombosis Risk Factor Assessment Level: Moderate Risk Assessment and Plan Assessment: 1. Ventricular arrhythmia - Cardiac telemetry; consult cardiology - Patient has been evaluated by cardiology and patient's rhythm strips from outside facility are reviewed and report was read as ventricular tachycardia seems to be an artifact; EKG shows normal sinus rhythm with right bundle branch block with question of atrial fibrillation - Patient had an echocardiogram done and recently which did not reveal any evidence of segmental wall motion abnormality - No further cardiac workup was recommended 2. UTI; patient is started on IV Rocephin; urine cultures are done and pending; we will plan to tailor antibiotic therapy once culture results are available 3. Altered mental status; metabolic encephalopathy possibly secondary to UTI 4. Hypertension; stable on home dose of lisinopril 5 mg daily along with Coreg 3.125 mg daily 5. Hyperlipidemia; continue with Lipitor 40 mg by mouth daily at bedtime 6. Advanced dementia; Aricept 5 mg by mouth daily at bedtime 7. Hypothyroidism; levothyroxine 75 MCG daily 8. Insulin-dependent diabetes; we will continue with Levemir 28 units subcu daily; monitor Accu-Cheks every before meals and at bedtime with insulin sliding scale DVT prophylaxis; SCDs CODE STATUS; full code
[2020-04-04] MEDS: INSULIN DETEMIR (LEVEMIR) 100 UNIT/ML SYR SQ SCH (11:22)
[2020-04-04 12:11] LABS: Glucose,Whole Blood 262 mg/dL (75-99)
--- NOTE | 2020-04-04 12:17 | US ---
EXAMINATION TYPE: US venous doppler duplex UE RT DATE OF EXAM: 04/04/2020 COMPARISON: NONE CLINICAL HISTORY: Swelling right arm. Poor historian. No redness. No swelling SIDE PERFORMED: Right limited visualization due to patient small body habitus Right Arm: Negative for DVT IMPRESSION: 1. Right upper extremity ultrasound negative for deep venous thrombosis. There is some limitation on this due to body habitus.
--- NOTE | 2020-04-04 16:26 | P.PN ---
Subjective Progress Note Date: 04/04/20 Principal diagnosis: Ventricular arrhythmia Altered mental status UTI 78-year-old female patient with history of recurrent's dementia, transferred to our facility for cardiac evaluation for possible ventricular tachycardia at the outside facility 04/04/2020 Patient is seen and evaluated resting comfortably in bed; patient discussed in detail with nursing staff; did have episodes of marked fluctuations in blood sugar Vital signs remained stable with a temperature of 98, pulse 73, respiration 18 and blood pressure 118/60 We will continue with long-acting insulin in form of Lantus and discontinue sliding scale coverage; monitor blood sugars closely and make further adjustments as needed Right upper extremity exhibits some swelling close to forearm and wrist area; we will order ultrasound Doppler of right upper extremity to rule out DVT Patient has been cleared by cardiology and no further testing is recommended; remains on IV Rocephin for UTI to final culture results are available to tailor antibiotic therapy; we will consult PT/OT for discharge planning Objective - Vital Signs Vital signs: Vital Signs Temp 98 F 04/04/20 08:00 Pulse 73 04/04/20 08:00 Resp 18 04/04/20 08:00 BP 180/81 04/04/20 08:00 Pulse Ox 97 04/04/20 08:00 Intake & Output 04/03/20 04/04/20 04/04/20 18:59 06:59 18:59 Intake Total 1800 840 300 Output Total 800 Balance 1000 840 300 Intake: Intake, IV Titration 100 Amount cefTRIAXone 1 gm In 100 Sodium Chloride 0.9% 50 ml @ 100 mls/hr IVPB DAILY [facility] Rx#:[id number] Oral 1700 840 300 Output: Urine 800 Other: Voiding Method Diaper Diaper # Voids 1 1 1 - Exam - Constitutional General appearance: Present: average body habitus, cooperative, no acute distressl Neck: Present: normal ROM. Absent: lymphadenopathy, rigidity, thyromegaly Carotids: negative: bruit present Thyroid: bilateral: normal size, negative: enlarged, nodule Respiratory: bilateral: CTA, negative: rales, rhonchi, wheezing Cardiovascular; regular; normal: S1, S2 Abnormal Heart Sounds: Absent: systolic murmur, diastolic murmur General gastrointestinal: Present: normal bowel sounds, soft. Absent: distended, organomegaly, tenderness Integumentary: Present: normal turgor. Absent: jaundiced, rash, ulcer Neurologic: Present: CNII-XII intact. - Labs CBC & Chem 7: 04/02/20 23:37 04/02/20 23:37 Labs: Abnormal Lab Results - Last 24 Hours (Table) 04/03/20 04/03/20 04/03/20 Range/Units 05:50 12:07 16:55 POC Glucose (mg/dL) 171 H 72 L (75-99) mg/dL LDL Cholesterol, Calc 111 H (0-99) mg/dL 04/03/20 04/03/20 04/04/20 Range/Units 18:59 20:51 06:05 POC Glucose (mg/dL) 200 H 230 H 64 L (75-99) mg/dL LDL Cholesterol, Calc (0-99) mg/dL 04/04/20 Range/Units 06:25 POC Glucose (mg/dL) 212 H (75-99) mg/dL LDL Cholesterol, Calc (0-99) mg/dL Assessment and Plan Assessment: 1. Ventricular arrhythmia - Cardiac telemetry; consult cardiology - Patient has been evaluated by cardiology and patient's rhythm strips from outside facility are reviewed and report was read as ventricular tachycardia seems to be an artifact; EKG shows normal sinus rhythm with right bundle branch block with question of atrial fibrillation - Patient had an echocardiogram done and recently which did not reveal any evidence of segmental wall motion abnormality - No further cardiac workup was recommended 2. UTI; patient is started on IV Rocephin; urine cultures are done and pending; we will plan to tailor antibiotic therapy once culture results are available 3. Altered mental status; metabolic encephalopathy possibly secondary to UTI 4. Hypertension; stable on home dose of lisinopril 5 mg daily along with Coreg 3.125 mg daily 5. Hyperlipidemia; continue with Lipitor 40 mg by mouth daily at bedtime 6. Advanced dementia; Aricept 5 mg by mouth daily at bedtime 7. Hypothyroidism; levothyroxine 75 MCG daily 8. Insulin-dependent diabetes; we will continue with Levemir 28 units subcu da francis; monitor Accu-Cheks every before meals and at bedtime with insulin sliding scale DVT prophylaxis; SCDs CODE STATUS; full code
[2020-04-04 17:24] LABS: Glucose,Whole Blood 252 mg/dL (75-99)
[2020-04-04 21:08] LABS: Glucose,Whole Blood 204 mg/dL (75-99)
[2020-04-04] MEDS: QUEtiapine 25 MG TAB PO PRN (21:59)
[2020-04-05 00:36] LABS: Glucose,Whole Blood 36 mg/dL (75-99)
[2020-04-05 00:37] LABS: Glucose,Whole Blood 33 mg/dL (75-99)
[2020-04-05] MEDS ORDERED: DEXTROSE 50% SYRINGE 50 ML IVP STA (00:42)
[2020-04-05 00:50] LABS: Glucose,Whole Blood 217 mg/dL (75-99)
[2020-04-05 01:36] LABS: Glucose,Whole Blood 128 mg/dL (75-99)
[2020-04-05 06:04] LABS: Glucose,Whole Blood 53 mg/dL (75-99)
[2020-04-05 06:17] LABS: Glucose,Whole Blood 44 mg/dL (75-99)
[2020-04-05 06:35] LABS: Glucose,Whole Blood 85 mg/dL (75-99)
[2020-04-05] MEDS ORDERED: DEXTROSE 5%-0.9% NACL 1,000 ML IV SCH (07:00)
[2020-04-05] MEDS: LEVOTHYROXINE 75 MCG TAB PO SCH (07:05)
[2020-04-05 07:22] LABS: Basophils % (A) 0 %; Eosinophils # (A) 0.1 k/uL (0-0.7); Eosinophils % (A) 2 %; HCT 41.8 % (34.0-46.0); HGB 13.1 gm/dL (11.4-16.0); Lymphocytes # (A) 0.9 k/uL (1.0-4.8); Lymphocytes % (A) 16 %; MCH 29.9 pg (25.0-35.0); MCHC 31.4 g/dL (31.0-37.0); MCV 95.1 fL (80.0-100.0); Mean Platelet Volume 7.5; Monocytes # (A) 0.4 k/uL (0-1.0); Monocytes % (A) 7 %; Neutrophils # (A) 4.3 k/uL (1.3-7.7); Neutrophils % (A) 73 %; Platelet Count 213 k/uL (150-450); RBC 4.39 m/uL (3.80-5.40); RDW 13.2 % (11.5-15.5); WBC 5.9 k/uL (3.8-10.6)
[2020-04-05 07:33] LABS: Calcium 8.8 mg/dL (8.4-10.2); Potassium 4.7 mmol/L (3.5-5.1)
[2020-04-05] MEDS: lisinopriL 5 MG TAB PO SCH (09:29)
[2020-04-05] MEDS: FAMOTIDINE 20 MG TAB PO SCH (09:29)
[2020-04-05] MEDS: ATORVASTATIN 40 MG TAB PO SCH (09:29)
[2020-04-05] MEDS: ASPIRIN 81 MG PO SCH (09:29)
[2020-04-05] MEDS: DONEPEZIL 5 MG TAB PO SCH (09:29)
[2020-04-05] MEDS: carvediloL 3.125 MG TAB PO SCH (09:29)
[2020-04-05] MEDS ORDERED: QUEtiapine 25 MG TAB PO PRN (11:01)
[2020-04-05] MEDS: HALOPERIDOL LACTATE 5 MG/ML 1 ML VIAL IVP PRN ×2 (11:13→18:49)
[2020-04-05 11:15] LABS: Glucose,Whole Blood 242 mg/dL (75-99)
--- NOTE | 2020-04-05 12:13 | P.PN ---
Subjective 78-year-old female patient with history of recurrent's dementia, transferred to our facility for cardiac evaluation for possible ventricular tachycardia at the outside facility 04/04/2020 Patient is seen and evaluated resting comfortably in bed; patient discussed in detail with nursing staff; did have episodes of marked fluctuations in blood sugar Vital signs remained stable with a temperature of 98, pulse 73, respiration 18 and blood pressure 118/60 We will continue with long-acting insulin in form of Lantus and discontinue sliding scale coverage; monitor blood sugars closely and make further adjustments as needed Right upper extremity exhibits some swelling close to forearm and wrist area; we will order ultrasound Doppler of right upper extremity to rule out DVT Patient has been cleared by cardiology and no further testing is recommended; remains on IV Rocephin for UTI to final culture results are available to tailor antibiotic therapy; we will consult PT/OT for discharge planning. 04/05/2020 Patient has advancing dementia. Unable to get much of the history from the patient. I do not have any urine cultures available at this time patient is being treated for UTI. Patient blood sugars are extremely low and discontinue her insulin patient will be continue on sliding scale insulin will be transferr ed out of for cardiac care unit. Patient most probably will need subacute intimidation placement. Patient is definitely confused. Patient will be started on Seroquel, Haldo As needed for agitation patient had occasional agitation episodes. Patient is on D5 which will be discontinued. Review of systems: Unable to obtain due to her clinical condition All inpatient medications were reviewed and appropriate changes in these medications as dictated in the interval history and assessment and plan. Objective - Vital Signs Vital signs: Vital Signs Temp 98.1 F 04/05/20 09:20 Pulse 62 04/05/20 09:20 Resp 16 04/05/20 09:20 BP 180/73 04/05/20 09:20 Pulse Ox 98 04/05/20 09:20 Intake & Output 04/04/20 04/05/20 04/05/20 18:59 06:59 18:59 Intake Total 1140 Balance 1140 Intake: Oral 1140 Other: Voiding Method Incontinent Incontinent Incontinent # Voids 1 1 - Exam PHYSICAL EXAMINATION: GENERAL: The patient is alert and oriented x1, not in any acute distress. Well developed, well nourished. HEENT: Pupils are round and equally reacting to light. EOMI. No scleral icterus. No conjunctival pallor. Normocephalic, atraumatic. No pharyngeal erythema. No thyromegaly. CARDIOVASCULAR: S1 and S2 present. No rubs, or gallops. There is a systolic murmur in aortic area PULMONARY: Unable to assess ABDOMEN: Soft, nontender, nondistended, normoactive bowel sounds. No palpable organomegaly. MUSCULOSKELETAL: No joint swelling or deformity. EXTREMITIES: No cyanosis, clubbing, or pedal edema. NEUROLOGICAL: Unable to assess SKIN: No rashes. - Labs CBC & Chem 7: 04/05/20 06:55 04/05/20 06:55 Labs: Abnormal Lab Results - Last 24 Hours (Table) 04/04/20 04/04/20 04/04/20 Range/Units 11:40 16:53 20:32 Lymphocytes # (1.0-4.8) k/uL Chloride (98-107) mmol/L BUN (7-17) mg/dL Glucose (74-99) mg/dL POC Glucose (mg/dL) 262 H 252 H 204 H (75-99) mg/dL 04/05/20 04/05/20 04/05/20 Range/Units 00:34 00:36 00:49 Lymphocytes # (1.0-4.8) k/uL Chloride (98-107) mmol/L BUN (7-17) mg/dL Glucose (74-99) mg/dL POC Glucose (mg/dL) 36 L 33 L 217 H (75-99) mg/dL 04/05/20 04/05/20 04/05/20 Range/Units 01:34 05:58 06:16 Lymphocytes # (1.0-4.8) k/uL Chloride (98-107) mmol/L BUN (7-17) mg/dL Glucose (74-99) mg/dL POC Glucose (mg/dL) 128 H 53 L 44 L (75-99) mg/dL 04/05/20 04/05/20 04/05/20 Range/Units 06:55 06:55 11:14 Lymphocytes # 0.9 L (1.0-4.8) k/uL Chloride 110 H (98-107) mmol/L BUN 32 H (7-17) mg/dL Glucose 112 H (74-99) mg/dL POC Glucose (mg/dL) 242 H (75-99) mg/dL Assessment and Plan Plan: 1. Ventricular arrhythmia - Cardiac telemetry; patient was evaluated by cardiology and the there is no evidence of ventricular tachycardia her anymore and they believe patient and the EKG findings are artifact rather than V. tach. Patient does have right bundle- branch block - - Patient had an echocardiogram done and recently which did not reveal any evidence of segmental wall motion abnormality - No further cardiac workup was recommended 2. UTI; patient is started on IV Rocephin; urine cultures are done and pending; we will plan to tailor antibiotic therapy once culture results are not available at this time patient will complete therapy of 5-7 days 3. Altered mental status; metabolic encephalopathy possibly secondary to UTI 4. Hypertension; stable on home dose of lisinopril 5 mg daily along with Coreg 3.125 mg daily 5. Hyperlipidemia; continue with Lipitor 40 mg by mouth daily at bedtime 6. Advanced dementia; Aricept 5 mg by mouth daily at bedtime 7. Hypothyroidism; levothyroxine 75 MCG daily 8. Insulin-dependent diabetes; long-acting insulin was discontinued because of hypoglycemia. DVT prophylaxis; SCDs CODE STATUS; full code
[2020-04-05 17:42] LABS: Glucose,Whole Blood 256 mg/dL (75-99)
[2020-04-05 20:34] LABS: Glucose,Whole Blood 423 mg/dL (75-99)
[2020-04-05] MEDS: INSULIN ASPART (NovoLOG) 100 UNIT/ML VIAL SQ SCH (21:20)
[2020-04-05 23:22] VITALS: TEMP 97.6
[2020-04-05] MEDS: INSULIN DETEMIR (LEVEMIR) 100 UNIT/ML SYR SQ SCH (23:28)
[2020-04-06 06:09] LABS: Glucose,Whole Blood 260 mg/dL (75-99)
[2020-04-06] MEDS: LEVOTHYROXINE 75 MCG TAB PO SCH (06:50)
[2020-04-06] MEDS: carvediloL 3.125 MG TAB PO SCH (06:50)
[2020-04-06] MEDS: INSULIN ASPART (NovoLOG) 100 UNIT/ML VIAL SQ SCH ×2 (06:50→12:32)
[2020-04-06 07:08] VITALS: BP 157/84; PULSE 81
[2020-04-06] MEDS: FAMOTIDINE 20 MG TAB PO SCH (09:27)
[2020-04-06] MEDS: ASPIRIN 81 MG PO SCH (09:27)
[2020-04-06] MEDS: ATORVASTATIN 40 MG TAB PO SCH (09:28)
[2020-04-06] MEDS: DONEPEZIL 5 MG TAB PO SCH (09:28)
[2020-04-06] MEDS: lisinopriL 5 MG TAB PO SCH (09:32)
[2020-04-06] MEDS: HALOPERIDOL LACTATE 5 MG/ML 1 ML VIAL IVP PRN (10:24)
[2020-04-06 11:51] VITALS: RESP 18
[2020-04-06 11:52] LABS: Glucose,Whole Blood 315 mg/dL (75-99)
--- NOTE | 2020-04-06 13:06 | P.DS ---
Providers Date of admission: 04/03/20 01:18 Attending physician: Reyna Vega Primary care physician: Eliel Mar MD Hospital Course: 78-year-old female patient with history of recurrent's dementia, transferred to our facility for cardiac evaluation for possible ventricular tachycardia at the outside facility 04/04/2020 Patient is seen and evaluated resting comfortably in bed; patient discussed in detail with nursing staff; did have episodes of marked fluctuations in blood sugar Vital signs remained stable with a temperature of 98, pulse 73, respiration 18 and blood pressure 118/60 We will continue with long-acting insulin in form of Lantus and discontinue sliding scale coverage; monitor blood sugars closely and make further adjustments as needed Right upper extremity exhibits some swelling close to forearm and wrist area; we will order ultrasound Doppler of right upper extremity to rule out DVT Patient has been cleared by cardiology and no further testing is recommended; remains on IV Rocephin for UTI to final culture results are available to tailor antibiotic therapy; we will consult PT/OT for discharge planning. 04/05/2020 Patient has advancing dementia. Unable to get much of the history from the patient. I do not have any urine cultures available at this time patient is being treated for UTI. Patient blood sugars are extremely low and discontinue her insulin patient will be continue on sliding scale insulin will be transferred out of for cardiac care unit. Patient most probably will need subacute intimidation placement. Patient is definitely confused. Patient will be started on Seroquel, Haldo As needed for agitation patient had occasional agitation episodes. Patient is on D5 which will be discontinued. 04/06/2020 Patient is still confused this is her baseline patient does have advanced dem entia patient has occasional agitation episodes secondary to hospitalization related delirium patient was treated for UTI and completed antibiotic therapy and patient will not require any more antibiotics. Patient will be discharged to subacute intimidation today may need long-term placement after that. PHYSICAL EXAMINATION: GENERAL: The patient is alert and oriented x1, not in any acute distress. Well developed, well nourished. HEENT: Pupils are round and equally reacting to light. EOMI. No scleral icterus. No conjunctival pallor. Normocephalic, atraumatic. No pharyngeal erythema. No thyromegaly. CARDIOVASCULAR: S1 and S2 present. No rubs, or gallops. There is a systolic murmur in aortic area PULMONARY: Unable to assess ABDOMEN: Soft, nontender, nondistended, normoactive bowel sounds. No palpable organomegaly. MUSCULOSKELETAL: No joint swelling or deformity. EXTREMITIES: No cyanosis, clubbing, or pedal edema. NEUROLOGICAL: Unable to assess SKIN: No rashes. Assessment and Plan Plan: 1. Ventricular arrhythmia - Cardiac telemetry; patient was evaluated by cardiology and the there is no evidence of ventricular tachycardia her anymore and they believe patient and the EKG findings are artifact rather than V. tach. Patient does have right bundle- branch block - - Patient had an echocardiogram done and recently which did not reveal any evidence of segmental wall motion abnormality - No further cardiac workup was recommended 2. UTI; was on on IV Rocephin; urine cultures are not showing significant abnormality will not need to continue the antibiotics. 3. Altered mental status; metabolic encephalopathy possibly secondary to UTI 4. Hypertension; stable on home dose of lisinopril 5 mg daily along with Coreg 3.125 mg daily 5. Hyperlipidemia; continue with Lipitor 40 mg by mouth daily at bedtime 6. Advanced dementia; Aricept 5 mg by mouth daily at bedtime 7. Hypothyroidism; levothyroxine 75 MCG daily 8. Insulin-dependent diabetes; long-acting insulin was discontinued because of hypoglycemia. Patient Condition at Discharge: Poor Plan - Discharge Summary New Discharge Prescriptions: New Donepezil [Aricept] 5 mg PO DAILY tab Aspirin 81 mg PO DAILY chew carvediloL [Coreg] 3.125 mg PO W/BRKFST tab Atorvastatin [Lipitor] 40 mg PO DAILY tab INSULIN ASPART (NovoLOG) [NovoLOG (formulary)] 0 unit SQ ACHS vial QUEtiapine [SEROquel] 25 mg PO HS PRN tab PRN Reason: Agitation Levothyroxine Sodium [Synthroid] 75 mcg PO DAILY@0630 tab lisinopriL [Zestril] 5 mg PO DAILY tab Changed Insulin Glargine,Hum.rec.anlog [Fabien Da Silva] 18 units SQ DAILY #0 Discharge Medication List Aspirin 81 mg PO DAILY chew 04/06/20 [Rx] Atorvastatin [Lipitor] 40 mg PO DAILY tab 04/06/20 [Rx] Donepezil [Aricept] 5 mg PO DAILY tab 04/06/20 [Rx] INSULIN ASPART (NovoLOG) [NovoLOG (formulary)] 0 unit SQ ACHS vial 04/06/20 [Rx] Insulin Glargine,Hum.rec.anlog [Toujeo Solostar] 18 units SQ DAILY #0 04/06/20 [Rx] Levothyroxine Sodium [Synthroid] 75 mcg PO DAILY@0630 tab 04/06/20 [Rx] QUEtiapine [SEROquel] 25 mg PO HS PRN tab 04/06/20 [Rx] carvediloL [Coreg] 3.125 mg PO W/BRKFST tab 04/06/20 [Rx] lisinopriL [Zestril] 5 mg PO DAILY tab 04/06/20 [Rx] Follow up Appointment(s)/Referral(s): Kristian Castro MD [STAFF PHYSICIAN] - 1 Week Eliel Mar MD [Primary Care Provider] - 1-2 days Discharge Disposition: TRANSFER TO SNF/ECF
[2020-04-06] MEDS ORDERED: INSULIN DETEMIR (LEVEMIR) 100 UNIT/ML SYR SQ SCH (21:00)
== END 2020-04-06 15:14 | disposition home health service (06) | DRG 308 ==
LOC: EC 22:55 → 3SCARD 04-03 01:18
PROVIDERS: ADMIT Hospitalist; ATTEND Hospitalist
DX: I47.2 Ventricular tachycardia (principal); G93.41 Metabolic encephalopathy; N39.0 Urinary tract infection, site not specified; E11.649 Type 2 diabetes mellitus with hypoglycemia without coma; Z79.4 Long term (current) use of insulin; E03.9 Hypothyroidism, unspecified; E78.5 Hyperlipidemia, unspecified; F03.90 Unspecified dementia, unspecified severity, without behavioral disturbance, psychotic disturbance, mood disturbance, and anxiety; I10 Essential (primary) hypertension; I45.10 Unspecified right bundle-branch block; I48.91 Unspecified atrial fibrillation; Z79.890 Hormone replacement therapy; Z79.899 Other long term (current) drug therapy; M79.89 Other specified soft tissue disorders
CPT/HCPCS: 36415; 71045; 80048; 80053; 80061; 81001; 83735; 84484; 85025; 85610; 85730; 93005; 96374; 99285

== ENCOUNTER 2023-03-07 13:22 | Emergency (ER) | payer MEDICARE, BC ==
--- NOTE | 2023-03-07 14:54 | ED ---
General Adult HPI - General Source: patient, family, RN notes reviewed Mode of arrival: wheelchair Limitations: altered mental status, physical limitation <Victor Hugo Perdomo - Last Filed: 03/07/23 14:53> <Sanjuanita Coelho - Last Filed: 03/07/23 20:05> - General Chief complaint: Skin/Abscess/Foreign Body Stated complaint: L Hand/Arm Infection Time Seen by Provider: 03/07/23 14:53 - History of Present Illness Initial comments: 87-year-old female presents emergency department with family for evaluation left hand pain, swelling. It is unclear exactly how long this been going on please see at least a few weeks. Patient does not move left hand, arm. Patient and is contracted they believe this is from pain. States that she was evaluated at [place] a few weeks ago. (Victor Hugo Perdomo) The patient is an 87-year-old female who is on hospice who presents to the emergency room accompanied by her and caregiver for redness and swelling to the left hand. Patient has not had a fall however has recurring cellulitis of the hand secondary to superficial abrasions from her fingernails. The left hand is then contracted for about a year and a nail stick into the palm causing the open wounds and cellulitis. She has had to be treated with antibiotics multiple times for this. They had seen a hand specialist multiple times for recurring infections and the family was told the only other option at this point would be to remove the fingers. The does not agree with this and they come here looking for treatment of the cellulitis and referrals to hand specialist in this area. Patient may have had a 99.1 temp yesterday however the family denies any fever today. She is nonverbal demented female with a history of Alzheimer's so limited history and review of systems. (Sanjuanita Coelho) - Related Data Previous Rx's Medication Instructions Recorded Aspirin 81 mg PO DAILY chew 04/06/20 Atorvastatin [Lipitor] 40 mg PO DAILY tab 04/06/20 Donepezil [Aricept] 5 mg PO DAILY tab 04/06/20 INSULIN ASPART (NovoLOG) [NovoLOG 0 unit SQ ACHS vial 04/06/20 (formulary)] Insulin Glargine,Hum.rec.anlog 18 units SQ DAILY #0 04/06/20 [Toujeo Solostar] Levothyroxine Sodium [Synthroid] 75 mcg PO DAILY@0630 tab 04/06/20 QUEtiapine [SEROquel] 25 mg PO HS PRN tab 04/06/20 carvediloL [Coreg] 3.125 mg PO W/BRKFST tab 04/06/20 lisinopriL [Zestril] 5 mg PO DAILY tab 04/06/20 Cephalexin [Keflex] 500 mg PO Q6HR #40 cap 03/07/23 Sulfamethox-Tmp 800-160Mg [Bactrim 1 each PO Q12HR #20 tab 03/07/23 Ds] Allergies Allergy/AdvReac Type Severity Reaction Status Date / Time No Known Allergies Allergy Verified 03/07/23 14:29 Review of Systems ROS Other: All systems not noted in ROS Statement are negative. <Victor Hugo Perdomo - Last Filed: 03/07/23 14:53> ROS Other: All systems not noted in ROS Statement are negative. <Sanjuanita Coelho - Last Filed: 03/07/23 20:05> ROS Statement: Those systems with pertinent positive or pertinent negative responses have been documented in the HPI. Past Medical History Past Medical History: Atrial Fibrillation, Dementia, Diabetes Mellitus, Hypertension, Thyroid Disorder History of Any Multi-Drug Resistant Organisms: Unobtainable Past Surgical History: No Surgical Hx Reported Past Anesthesia/Blood Transfusion Reactions: Unable to Obtain Past Psychological History: Unable to Obtain Smoking Status: Never smoker Past Alcohol Use History: Unable to Obtain Past Drug Use History: Unable to Obtain - Past Family History Mother Family Medical History: Unable to Obtain <Victor Hugo Perdomo - Last Filed: 03/07/23 14:53> General Exam Limitations: altered mental status, physical limitation <Victor Hugo Perdomo - Last Filed: 03/07/23 14:53> General appearance: alert Head exam: Present: atraumatic, normocephalic Eye exam: Present: normal appearance Respiratory exam: Present: normal lung sounds bilaterally Cardiovascular Exam: Present: regular rate Extremities exam: Present: other (Swelling to the left breast and dorsal hand with mild pink mass no significant erythema. Compartments are soft. Limited range of motion due to chronic contracture. No open wounds or drainage) Neurological exam: Present: alert, altered Skin exam: Present: warm, dry <Sanjuanita Coelho - Last Filed: 03/07/23 20:05> - General Exam Comments Initial Comments: Visual Physical Exam Vital signs reviewed General: Well-appearing, nontoxic, no acute distress. Head: Normocephalic, atraumatic Eyes: PERRLA, EOMI ENT: Airway patent Chest: Nonlabored breathing Skin: No visual rash, normal skin tone Neuro: Alert and oriented 3 Musculoskeletal: No gross abnormalities (Victor Hugo Perdomo) Swelling to the left wrist and dorsal aspect of the hand with mild pinkness, no severe erythema or warmth compartment is soft. No abrasions or lacerations office formation. 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 (Sanjuanita Coelho) Course <Sanjuanita Coelho - Last Filed: 03/07/23 20:05> Vital Signs 03/07/23 03/07/23 14:23 19:00 Temperature 97.8 F 97.2 F L Pulse Rate 61 66 Respiratory 20 18 Rate Blood Pressure 116/73 143/77 O2 Sat by Pulse 98 94 L Oximetry - Reevaluation(s) Reevaluation #1: 03/07/23 19:36 I discussed patient's labs and imaging results with patient and at the bedside as well as the caramel maker. The x-rays are negative for any obvious ST mellitus or Q changes. Patient has no significant leukocytosis. The family feels comfortable with outpatient antibiotics and follow-up with pre certification specialist as an outpatient. I did discuss signs return to the emergency room including any development of fevers, worsening redness, warmth or swelling to the left wrist and hand. (Sanjuanita Coelho) Medical Decision Making <Victor Hugo Perdomo - Last Filed: 03/07/23 14:53> - Lab Data Result diagrams: 03/07/23 16:22 03/07/23 16:22 - Radiology Data Radiology results: report reviewed, image reviewed <Sanjuanita Coelho - Last Filed: 03/07/23 20:05> - Medical Decision Making I performed the quick note portion of this chart signed Victor Hugo Perdomo PA-C (Victor Hugo Perdomo) Was pt. sent in by a medical professional or institution (, [employer], [employer]RO[employer] SUPER[employer], urgent care, hospital, or alf...) When possible be specific @ -[No] Did you speak to anyone other than the patient for history (EMS, parent, family, police, friend...)? What history was obtained from this source @ -Patient's at bedside and caramel maker Did you review nursing and triage notes (agree or disagree)? Why? @ -[I reviewed and agree with nursing and triage notes] Were old charts reviewed (outside hosp., previous admission, EMS record, old EKG, old radiological studies, urgent care reports/EKG's, alf records)? Report findings @ -[No old charts were reviewed] Differential Diagnosis (chest pain, altered mental status, abdominal pain women, abdominal pain men, vaginal bleeding, weakness, fever, dyspnea, syncope, headache, dizziness, GI bleed, back pain, seizure, CVA, palpatations, mental health, musculoskeletal)? @ -Cellulitis, peripheral edema EKG interpreted by me (3pts min.). @ -[As above] X-rays interpreted by me (1pt min.). @ -No obvious osteomyelitis or fractures seen on x-ray results. Radiology report pending for confirmation of acute changes. CT interpreted by me (1pt min.). @ -[None done] U/S interpreted by me (1pt. min.). @ -[None done] What testing was considered but not performed or refused? (CT, X-rays, U/S, labs)? Why? @ -[None] What meds were considered but not given or refused? Why? @ -[None] Did you discuss the management of the patient with other professionals (professionals i.e. , PA, [employer]ILROAD SUPER[employer]OR [employer], lab, RT, psych nurse, rn social services, marking stitcher, teacher, school resource officer, rn case management)? Give summary @ -Discussed patient's symptoms workup and management with attending ED physician Dr. Quintana today. Was smoking cessation discussed for >3mins.? @ -[No] Was critical care preformed (if so, how long)? @ -[No] Were there social determinants of health that impacted care today? How? (Homelessness, low income, unemployed, alcoholism, drug addiction, transpor tation, low edu. Level, literacy, decrease access to med. care, custodial, rehab)? @ -[No] Was there de-escalation of care discussed even if they declined (Discuss DNR or withdrawal of care, Hospice)? DNR status @ -[No] What co-morbidities impacted this encounter? (DM, HTN, Smoking, COPD, CAD, Cancer, CVA, ARF, Chemo, Hep., AIDS, mental health diagnosis, sleep apnea, morbid obesity)? @ -[None] Was patient admitted / discharged? Hospital course, mention meds given and route, prescriptions, significant lab abnormalities, going to OR and other pertinent info. @ -Patient is able to follow up as an outpatient. She will be given a referral to pre certification specialist for follow-up with hand. Discussed antibiotic management with the family and they agree to outpatient treatment. They do understand size to return to the emergency room for admission and IV antibiotics . Undiagnosed new problem with uncertain prognosis? @ -[No] Drug Therapy requiring intensive monitoring for toxicity (Heparin, Nitro, Insulin, Cardizem)? @ -[No] Were any procedures done? @ -[No] Diagnosis/symptom? @ -Cellulitis of the left hand, peripheral edema of the left hand Acute, or Chronic, or Acute on Chronic? @ -Acute on chronic Uncomplicated (without systemic symptoms) or Complicated (systemic symptoms)? @ -[default] Side effects of treatment? @ -[No] Exacerbation, Progression, or Severe Exacerbation? @ -[No] Poses a threat to life or bodily function? How? (Chest pain, USA, MD, pneumonia, PE, COPD, DKA, ARF, appy, cholecystitis, CVA, Diverticulitis, Homicidal, Suicidal, threat to staff... and all critical care pts) @ -[No] (Sanjuanita Coelho) - Lab Data Lab Results 03/07/23 03/07/23 03/07/23 Range/Units 16:22 16:22 18:43 WBC 9.0 (3.8-10.6) k/uL RBC 3.69 L (3.80-5.40) m/uL Hgb 11.5 (11.4-16.0) gm/dL Hct 36.0 (34.0-46.0) % MCV 97.6 (80.0-100.0) fL MCH 31.1 (25.0-35.0) pg MCHC 31.9 (31.0-37.0) g/dL RDW 13.1 (11.5-15.5) % Plt Count 279 (150-450) k/uL MPV 7.8 Neutrophils % 77 % Lymphocytes % 14 % Monocytes % 5 % Eosinophils % 3 % Basophils % 0 % Neutrophils # 7.0 (1.3-7.7) k/uL Lymphocytes # 1.2 (1.0-4.8) k/uL Monocytes # 0.4 (0-1.0) k/uL Eosinophils # 0.2 (0-0.7) k/uL Basophils # 0.0 (0-0.2) k/uL ESR 55 H (0-20) mm/hr Sodium 137 (137-145) mmol/L Potassium 5.4 H (3.5-5.1) mmol/L Chloride 103 (98-107) mmol/L Carbon Dioxide 29 (22-30) mmol/L Anion Gap 5 mmol/L BUN 56 H (7-17) mg/dL Creatinine 1.18 H (0.52-1.04) mg/dL Est GFR (CKD-EPI)AfAm 47 (>60 ml/min/1.73 sqM) Est GFR (CKD-EPI)NonAf 41 (>60 ml/min/1.73 sqM) Glucose 181 H (74-99) mg/dL POC Glucose (mg/dL) 204 H (70-110) mg/dL POC Glu Senior Game Advisor ID Josie Valdez Calcium 9.3 (8.4-10.2) mg/dL Total Bilirubin 0.5 (0.2-1.3) mg/dL AST 22 (14-36) U/L ALT 16 (4-34) U/L Alkaline Phosphatase 68 (38-126) U/L Total Protein 7.0 (6.3-8.2) g/dL Albumin 3.7 (3.5-5.0) g/dL Disposition <Victor Hugo Perdomo - Last Filed: 03/07/23 14:53> Is patient prescribed a controlled substance at d/c from ED?: No Time of Disposition: 20:05 <Sanjuanita Coelho - Last Filed: 03/07/23 20:05> Clinical Impression: Cellulitis, Cellulitis of hand, left Disposition: HOME SELF-CARE Condition: Fair Instructions (If sedation given, give patient instructions): Cellulitis (ED) Additional Instructions: Follow up with pre certification specialist for further evaluation and management of the reoccurring cellulitis. Follow-up with the PCP to have your potassium rechecked. Return to the emergency room for any worsening redness, warmth, fevers or new concerning symptoms. Referrals: Eliel Mar MD [Primary Care Provider] - 1-2 days
[2023-03-07 17:01] LABS: Basophils % (A) 0 %; Eosinophils # (A) 0.2 k/uL (0-0.7); Eosinophils % (A) 3 %; HGB 11.5 gm/dL (11.4-16.0); Lymphocytes # (A) 1.2 k/uL (1.0-4.8); Lymphocytes % (A) 14 %; MCH 31.1 pg (25.0-35.0); MCHC 31.9 g/dL (31.0-37.0); MCV 97.6 fL (80.0-100.0); Mean Platelet Volume 7.8; Monocytes # (A) 0.4 k/uL (0-1.0); Monocytes % (A) 5 %; Neutrophils % (A) 77 %; Platelet Count 279 k/uL (150-450); RBC 3.69 m/uL (3.80-5.40); RDW 13.1 % (11.5-15.5)
[2023-03-07 17:07] LABS: ALT 16 U/L (4-34); AST 22 U/L (14-36); African American GFR (CKD) 47 (>60 ml/min/1.73 sqM); Albumin 3.7 g/dL (3.5-5.0); Alkaline Phosphatase 68 U/L (38-126); Anion Gap 5 mmol/L; Blood Urea Nitrogen 56 mg/dL (7-17); Calcium 9.3 mg/dL (8.4-10.2); Carbon Dioxide 29 mmol/L (22-30); Chloride 103 mmol/L (98-107); Glucose 181 mg/dL (74-99); Non-African American GFR(CKD) 41 (>60 ml/min/1.73 sqM); Potassium 5.4 mmol/L (3.5-5.1); Sodium 137 mmol/L (137-145); Total Bilirubin 0.5 mg/dL (0.2-1.3)
[2023-03-07 17:47] LABS: Erythrocyte Sedimentation Rate 55 mm/hr (0-20)
[2023-03-07 18:45] LABS: Glucose,Whole Blood 204 mg/dL (70-110)
--- NOTE | 2023-03-07 19:01 | XR ---
EXAM: XR Left Hand, 2 Views CLINICAL HISTORY: ITS.REASON XR Reason: swelling, erythema TECHNIQUE: Frontal and lateral views of the left hand. COMPARISON: No relevant prior studies available. FINDINGS: Bones/joints: Marked osteopenia. Limited assessment due to finger flexion on both projections. Marked anterior/palmar subluxation of the second MCP joint. Ulnar angulation of third-fifth MCP joint. Correlate for rheumatoid arthritis No definite fracture within technical limits. Degeneration of the first CMC and MCP joints. Degeneration of interphalangeal joints. Borderline widening of the scapholunate interval may reflect ligament injury. Soft tissues: Diffuse hand swelling. No definite radiopaque foreign body. IMPRESSION: Marked palmar subluxation of the second MCP joint. Ulnar subluxation of the third-fifth MTP joints. Correlate for rheumatoid arthritis. Borderline widening of the scapholunate interval may reflect ligament injury. Diffuse soft tissue swelling to the left hand.
[2023-03-07] MEDS ORDERED: CEPHALEXIN 500 MG CAP PO STA (19:33)
[2023-03-07] MEDS ORDERED: SULFAMETHOX-TMP 800-160MG 1 EACH TAB PO STA (19:34)
[2023-03-07 19:49] VITALS: RESP 18; TEMP 97.2
[2023-03-07 20:10] VITALS: BP 138/67; PULSE 76
[2023-03-07] MEDS ORDERED: INSULIN DETEMIR (LEVEMIR) 100 UNIT/ML SYR SQ SCH (21:00)
== END 2023-03-07 20:08 | disposition home or self-care (01) ==
LOC: EC 13:22
DX: L03.114 Cellulitis of left upper limb (principal); I48.91 Unspecified atrial fibrillation; I10 Essential (primary) hypertension; E11.9 Type 2 diabetes mellitus without complications
CPT/HCPCS: 36415; 80053; 85025; 85652; 87040; 99284